=== PATIENT | female | born 1985 | race Caucasian/White ===

== ENCOUNTER 2018-03-05 19:55 | Emergency (ER) | payer MEDICARE, MEDICAID ==
[2018-03-05] MEDS ORDERED: Metoclopramide 10 MG/2 ML SDV IV ONE (19:56)
[2018-03-05] MEDS ORDERED: Acetaminophen/oxyCODONE 325-5 MG Tab PO ONE (19:56)
[2018-03-05] MEDS ORDERED: Morphine 2 MG/ML Syringe IV ONE (19:56)
--- NOTE | 2018-03-05 20:15 | EDM.PDOC ---
ED HPI GENERAL MEDICAL PROBLEM - General Chief Complaint: General Stated Complaint: HAS ARELY DISEASE, CHOKING, Time Seen by Provider: 03/05/18 20:06 Source of Information: Reports: Patient History Limitations: Reports: No Limitations - History of Present Illness INITIAL COMMENTS - FREE TEXT/NARRATIVE: ED with family with complaint of lower rib pain. Reported to have been choking and someone tried heimlich and now ribs hurt. No problem breathing Feww attempts and food dislodged appeared fine following. Attended wake with parentslater, fell fwd from sitting, no loss of consciousness. mild bruising to nose, no pain. Hx falls in past. [place] Dz hx.. - Related Data Allergies Allergy/AdvReac Type Severity Reaction Status Date / Time No Known Allergies Allergy Verified 01/05/15 18:51 Home Meds: Home Meds Tetrabenazine [Xenazine] 12.5 mg PO ASDIRECTED 07/21/14 [History] levETIRAcetam [Keppra] 3.5 tab PO BID 07/21/14 [History] Citalopram [Citalopram HBr] 20 mg PO DAILY 01/05/15 [History] Topiramate [Topamax] 50 mg PO BID 01/05/15 [History] OXcarbazepine [Trileptal] 300 mg PO DAILY tablet 01/06/15 [Rx] Sulfamethoxazole/Trimethoprim [Bactrim Ds Tablet] 1 each PO BID #10 tablet 01/06 [Rx] Past Medical History Other HEENT History: glasses Other Cardiovascular History: irregular heart beat years ago Other Neuro History: Brookland's disease Chorea ED ROS GENERAL - Review of Systems Review Of Systems: ROS reveals no pertinent complaints other than HPI. ED EXAM, GENERAL - Physical Exam Exam: See Below Free Text/Narrative:: See scanned document due EMR downtime Course - Orders/Labs/Meds Meds: Medications Discontinued Medications Generic Name Dose Route Start Last Admin Trade Name Amanda PRN Reason Stop Dose Admin Metoclopramide HCl 5 mg 03/05/18 20:17 Reglan IVPUSH 03/05/18 20:18 ONETIME ONE Metoclopramide HCl 5 mg 03/05/18 19:56 Reglan IV 03/05/18 19:57 .STK-MED ONE Morphine Sulfate 2 mg 03/05/18 20:17 Morphine IVPUSH 03/05/18 20:18 ONETIME ONE Morphine Sulfate Confirm 03/05/18 21:08 Morphine Administered 03/05/18 21:09 Dose 2 mg .ROUTE .STK-MED ONE Morphine Sulfate 2 mg 03/05/18 19:56 Morphine IV 03/05/18 19:57 .STK-MED ONE Oxycodone/Acetaminophen Confirm 03/05/18 21:43 03/06/18 03:30 Percocet 325-5 Mg Administered 03/05/18 21:44 Not Given Dose 3 tab .ROUTE .STK-MED ONE Oxycodone/Acetaminophen 3 tab 03/05/18 19:56 Percocet 325-5 Mg PO 03/05/18 19:57 .STK-MED ONE Departure - Departure Time of Disposition: 22:15 Disposition: Home, Self-Care 01 Condition: Good Clinical Impression: Rib pain, Brookland's disease, Dysphagia, neurologic Fall Qualifiers: Encounter type: initial encounter Qualified Code(s): W19.XXXA - Unspecified fall, initial encounter - Discharge Information Referrals: PCP,None [Primary Care Provider] - Forms: ED Department Discharge
[2018-03-05] MEDS ORDERED: Morphine 2 MG/ML Syringe IVPUSH ONE (20:17)
[2018-03-05] MEDS ORDERED: Metoclopramide 10 MG/2 ML SDV IVPUSH ONE (20:17)
[2018-03-05] MEDS ORDERED: Morphine 2 MG/ML Syringe ONE (21:08)
[2018-03-05] MEDS ORDERED: Acetaminophen/oxyCODONE 325-5 MG Tab ONE (21:43)
== END 2018-03-05 21:57 | disposition home or self-care (01) ==
LOC: DL.ED 19:55
DX: R07.81 Pleurodynia (principal); G10 Huntington's disease; F45.8 Other somatoform disorders; W19.XXXA Unspecified fall, initial encounter; Z79.899 Other long term (current) drug therapy
CPT/HCPCS: 71111; 96374; 96375; 96376; 99283; 99285; A9270; J2270; J2765